=== PATIENT | female | born 1995 | race Two or more races ===

== ENCOUNTER 2025-02-03 17:11 | Emergency (ER) | payer OTHER, SELFPAY ==
[2025-02-03 17:18] VITALS: BP 118/81; PULSE 87; RESP 18; TEMP 36.7; O2SAT 100
--- NOTE | 2025-02-03 17:28 | ED_ITS ---
HPI - Recheck/Abnormal Lab/Rx General Chief Complaint: Recheck/Abnormal Lab/Rx Stated Complaint: requesting rabies shot Time Seen by Provider: 02/03/25 17:23 Source: patient Mode of arrival: ambulatory Limitations: no limitations History of Present Illness HPI narrative: This is a 29 year old female that presents to the ER for a rabies vaccine. Reports they had a bat in their apartment. They went to [facility] ER on the 10th. Had the immune globulin and 1st vaccine there. Present today for second dose of vaccine series. No known contact/bite from the bat. Related Data Allergies Allergy/AdvReac Type Severity Reaction Status Date / Time No Known Allergies Allergy Verified 02/03/25 17:21 Review of Systems Review of Systems: All systems reviewed & are unremarkable except as noted in HPI and below PMFSH Past Medical History Medical History (Updated 02/03/25 @ 17:38 by Maribeth Rick PA-C) No active medical problems Exam Narrative: GENERAL: Well-appearing, well-nourished, and in no acute distress. HEAD: Normocephalic, atraumatic. EYES: EOMI. CHEST: No respiratory distress. HEART: Regular rate EXTREMITIES: Normal range of motion. No edema. SKIN: Warm, dry, no rash. NEURO: No focal deficits. Alert and oriented x3. PSYCH: Normal mood and affect Course Consultations Consultation #1: Spoke with Sidra Slaughter about patient will administer second dose of vaccine series and she will help them schedule the rest Date: 02/03/25 Vital Signs Vital signs: Vital Signs Temperature 98.1 F 02/03/25 17:18 Pulse Rate 87 02/03/25 17:18 Respiratory Rate 18 02/03/25 17:18 Blood Pressure 118/81 02/03/25 17:18 Pulse Oximetry 100 02/03/25 17:18 Oxygen Delivery Room Air 02/03/25 17:18 Temperature 98.1 F 02/03/25 17:18 Pulse Rate 87 02/03/25 17:18 Respiratory Rate 18 02/03/25 17:18 Blood Pressure 118/81 02/03/25 17:18 Pulse Oximetry 100 02/03/25 17:18 Oxygen Delivery Room Air 02/03/25 17:18 MDM - Recheck/Abnormal Lab/Rx MDM Narrative Medical decision making narrative: Patient administered second dose of rabies vaccine series and will follow up with Sidra for remainder Critical Care Time Critical Care Time Critical Care Time: No Discharge Plan Discharge Clinical Impression: Need for post exposure prophylaxis for rabies Patient Disposition: Home Condition: Stable Instructions: Rabies Vaccine (By injection) Additional Instructions: You will schedule further vaccine series with Sidra Slaughter, our infection control nurse. She will be in touch with you Patient Language: Mongolian Follow-up/Referrals: PHYSICIAN,LEVER MILLER [Primary Care Provider] -
--- OUTSIDE RECORDS SUMMARY | 2025-02-03 18:18 | XMS_ITS | Clinical Summary ---
Author Organization [facility] Address [address] [place] [address] Phone Care Team Providers Care Clutch Specialist Name Role Phone Aparna Tompkins Primary Care Provider [phone] Medications Vit-Fe Fumarate-FA ( VITAMIN PO) Take by mouth daily. Active ondansetron (Zofran) 4 MG Tablet Take 4 mg by mouth every 8 hours as needed. Active Active Problems No known active problems Immunizations Immunization Administration Dates Next Due [id number] anson MCV4, Unspecif ied Formulation 03/20/2017 DTAP VACCINE 08/20/2009, 3,07/11/1999,03/27,05/10/1998,02/07/1998 HIB Vaccine (PRP-T) 03/27/1999,05/10/1998,1997 Hepatitis A Vaccine 08/20/2009,12/15/2006 Hepatitis B Vaccine 06/14/1998,02/07/1998,1997 Human Papillomavirus (HPV) 9 -valent Vaccine 03/20/2017 Inactivated Polio Vaccine 04/05/2003,05/10/1998, 02/07/1998 MMR Vaccine 04/05/2003,03/29/1999 Meningococcal Vaccine 08/20/2009 Oral Polio Vaccine, Unspecif ied Formulation 07/11/1998 TDAP Vaccine 06/24/2019,08/20/2009 Varicella Vaccine Live 12/15/2006,01/15/1999 Family History Medical History Relation Name Comments Hypertension Father No Known Problems Mother No Known Problems Sister Relation Name Status Comments Father Mother Sister Social History Tobacco Use Types Packs/Day Years Used Date Smoking Tobacco: Never Smokeless Tobacco: Never Alcohol Use Standard Drinks/Week Comments Not Currently 0 (1 standard drink = 0.6 oz pur e alcohol) PHQ-2 Answer Date Recorded Total Score - Questions 1-9 0 02/22 Sexually Active Control Partners Comments Yes Male Comments Unknown Sex and Gender Information Value Date Recorded Sex Assigned at Not on file Legal Sex Female 12:42 PM CDT Gender Identity Not on file Sexual Orientation Not on file Last Filed Vital Signs Vital Sign Reading Time Taken Comments Blood Pressure 100/58 03/14/2021 10:40 AM CDT Pulse 108 03/14/2021 10:40 AM CDT Temperature 36.9 C (98.4 F) 03/14/2021 10:40 AM CDT Respiratory Rate 18 03/14/2021 10:40 AM CDT Oxygen Saturation 99% 03/14/2021 10:40 AM CDT Inhaled Oxygen Concentration - - Weight 71.5 kg (157 lb 9.6 oz) 03/14/2021 10:40 AM CDT Height 160 cm (5' 3) 03/14/2021 10:40 AM CDT Body Mass Index 27.92 03/14/2021 10:40 AM CDT Plan of Treatment Health Maintenance Due Date Last Done Comments Hepatitis C Virus (HCV) Screening 1997 Human Papillomavirus (HPV) Immunization (2 - 3-dose series) 04/17/2017 03/20/2017 Pap Smear 2018 SARS-COV-2 Immunization ( season) 2024 07/31/2021, 06/27/2021 Influenza Immunization (Season Ended) 2025 DTaP/Tdap/Td Immunization (8 - Td or Tdap) 06/24/2029 06/24/2019, 08/20/2009, 08/20/2009, Additional history exists Respiratory Syncytial Virus (RSV) Immunization (Adult) (1 - 1-dose 75+ series) 2072 Hepatitis B Immunization Completed 998, 02/07/1998, 1997 Meningococcal Immunization (ACWY) Aged Out 03/20/2017, 08/20/2009 No longer eligibl e based on patient's age to complete this topic Pneumococcal Immunization Combined Aged Out No longer eligible based on patient's age to complete this topic Rotavirus Immunization Aged Out No lo nger eligible based on patient's age to complete this topic Insurance [place]ICAID [place] Care Teams Clutch Specialist Relationship Specialty Start Date End Date Aparna Tompkins, KUSH PCP - General Physician Broke Beater 03/14/21
--- OUTSIDE RECORDS SUMMARY | 2025-02-03 18:18 | XMS_ITS | Clinical Summary ---
Author Organization [facility] Address [address] Attn: Epic Prelude ADT KEILA CASEY [id number] Care Team Providers Care Mechanical Systems Control Engineer Name Role Phone Silvina Lopez MD Primary Care Provider [phone] Allergies No known active allergies Medications clindamycin phosphate (CLEOCIN) 1 % Solution Apply to affected area 2 times daily. 60 mL 3 6 Active fluticasone propionate (FLONASE) 50 mcg/spray Erick, Suspension nasal inhaler Administer 2 Sprays in each nostril daily. 16 Gram 2 5 Active Active Problems Problem Noted Date Diagnosed Date Weight loss 01/29/2013 Allergic rhinitis 01/29/2013 Encounters Date Type Department Care Team Description 01/31/2025 8:33 PM CDT - 01/31/2025 10:29 PM CDT Emergency [facility] Emergency Department [address] [place] [id number] Taurus Finley MD Encounter for prophylactic administration of rabies immune globulin (Primary Dx); Exposure to bat without known bite Discharge Disposition: Home or Self Care 01/31/2025 Travel from Last 3 Months Immunizations Immunization Administration Dates Next Due (HYPERRAB/IMOGAM-HT)(ALL AGE S) RABIES IMMUNE GLOBULIN, HUMAN (RIg) 300 UNIT/ML (PF)/(RIg-HT), 150 UNIT/ML, IM/SUBCUT 01/31/2025 (IMOVAX)(ALL AGES) RABIES VACCINE, DIPLOID, 1 ML , IM 01/31/2025 Social History Tobacco Use Types Packs/Day Years Used Date Smoking Tobacco: Never Smokeless Tobacco: Never Alcohol Use Standard Drinks/Week Comments No 0 (1 standard drink = 0.6 oz pur e alcohol) Feeling Safe Answer Date Recorded Are you in a relationship wi th someone who hurts you emotionally and/or physically? No 01/31/2025 Comments Unknown Sex and Gender Information Value Date Recorded Sex Assigned at Not on file Legal Sex Female 3:37 AM BLACK PULLER Gender Identity Not on file Sexual Orientation Not on file Last Filed Vital Signs Vital Sign Reading Time Taken Comments Blood Pressure 109/69 01/31/2025 10:27 PM CDT Pulse 79 01/31/2025 10:27 PM CDT Temperature 36.3 C (97.3 F) 01/31/2025 10:27 PM CDT Respiratory Rate 18 01/31/2025 10:27 PM CDT Oxygen Saturation 98% 01/31/2025 10:27 PM CDT Inhaled Oxygen Concentration - - Weight 74.8 kg (165 lb) 01/31/2025 7:47 PM CDT Height 160 cm (5' 3) 01/31/2025 7:47 PM CDT Body Mass Index 29.23 01/31/2025 7:47 PM CDT Plan of Treatment Health Maintenance Due Date Last Done Comments HPV VACCINES (2 - 3-dose series) 04/17/2017 03/20/20 17 CERVICAL CANCER SCREENING 2018 HPV/Cotest (21-29) 2018 PAP SMEAR 2018 INFLUENZA VACCINE (#1) 2024 DTAP/TDAP/TD VACCINES (8 - T d or Tdap) 06/24/2029 06/24/2019, 08/20/2009, 08/20/2009, Additional history exists HEPATITIS B VACCINES Completed 06/14/1998, 02/07/1998, 1997 Insurance [employer] [id number] Care Teams Mechanical Systems Control Engineer Relationship Specialty Start Date End Date Silvina Lopez MD PCP - General Family Practice 06/07/15
[2025-02-03] MEDS: RABIES VACCINE (RABAVERT) 2.5 UNITS VIAL IM (18:25)
[2025-02-03 19:26] VITALS: BP 113/80; PULSE 83; RESP 18; O2SAT 98
== END 2025-02-03 19:27 | disposition home or self-care (01) ==
PROVIDERS: Emergency Provider Physician Assistant
DX: Z29.14 Encounter for prophylactic rabies immune globulin (principal); Z23 Encounter for immunization
CPT/HCPCS: 90471; 90675; 99282

== ENCOUNTER 2025-02-14 07:33 | Outpatient (RCR) | payer OTHER, SELFPAY | END 2025-05-08 23:59 | disposition home or self-care (01) | LOC: ANHVASCINF 07:33 | PROVIDERS: Visit Provider Physician Assistant | DX: Z29.14 Encounter for prophylactic rabies immune globulin (principal); Z20.3 Contact with and (suspected) exposure to rabies | CPT/HCPCS: 90471; 90675 ==